=== PATIENT | male | born 1990 | race Caucasian/White ===

== ENCOUNTER 2018-03-24 05:59 | Inpatient (IN) | payer OTHER ==
[~2018-03-24] VITALS: Ht 190.5 cm; Wt 78.6 kg
[2018-03-24] MEDS ORDERED: LACTATED RINGERS 1,000 ML IV SCH (06:33)
[2018-03-24] MEDS ORDERED: SOMA PO (06:36)
[2018-03-24] MEDS ORDERED: TRAM50TA2 PO (06:36)
[2018-03-24] MEDS ORDERED: IBUPROFEN PO (06:36)
[2018-03-24] MEDS ORDERED: BUPIVACAINE 0.25% ONE (06:53)
[2018-03-24 06:54] VITALS: BP 134/76
[2018-03-24] MEDS ORDERED: BUPIVACAINE/PF-EPI 0.25% 1:200K ONE (06:54)
[2018-03-24] MEDS ORDERED: THROMBIN 5,000 UNIT VIAL TP ONE (06:54)
[2018-03-24] MEDS ORDERED: BACITRACIN 50,000 UNIT ONE (06:54)
[2018-03-24] MEDS ORDERED: LIDOCAINE-MPF 1%, 2ML INFIL ONE (07:00)
[2018-03-24 07:02] LABS: BASOPHILS # (AUTO) 0.03 x10^3/uL (0-0.1); BASOPHILS % (AUTO) 0 % (0-1); EOSINOPHILS # (AUTO) 0.26 x10^3/uL (0-0.4); EOSINOPHILS % (AUTO) 3 % (1-7); LYMPHOCYTES # (AUTO) 1.81 x10^3/uL (1-3.4); LYMPHOCYTES % (AUTO) 24 % (22-44); MD NO; MEAN CORPUSCULAR HEMOGLOBIN 31.9 pg (27.5-34.5); MEAN CORPUSCULAR HGB CONC 34.3 g/dL (33.2-36.2); MEAN PLATELET VOLUME 9.3 fL (7.4-10.4); MONOCYTES # (AUTO) 0.57 x10^3/uL (0.2-0.8); MONOCYTES % (AUTO) 8 % (2-9); NEUTROPHILS # (AUTO) 4.93 x10^3/uL (1.8-6.8); NEUTROPHILS % (AUTO) 65 % (42-75); PLATELET COUNT 237 x10^3/uL (130-400); RED BLOOD COUNT 4.86 x10^6/uL (4.38-5.82)
[2018-03-24] MEDS ORDERED: MIDAZOLAM 1 MG/ML, 2ML ONE (07:02)
[2018-03-24] MEDS ORDERED: FENTANYL PF 250 MCG/5ML ONE ×2 (07:02→08:54)
[2018-03-24 07:07] LABS: INTERNATIONAL NORMALIZED RATIO 1.05 (0.93-1.1); PROTHROMBIN TIME 10.9 Seconds (9.6-11.5)
[2018-03-24 07:08] LABS: ANION GAP 9 mmol/L (5-15); CALCIUM 8.8 mg/dL (8.5-10.1); CHLORIDE 110 mmol/L (98-107); CREATININE 1.04 mg/dL (0.7-1.3)
[2018-03-24 07:15] LABS: MICROSCOPIC INDICATED
[2018-03-24 07:23] LABS: CULTURE INDICATED? NO
[2018-03-24] MEDS ORDERED: SUCCINYLCHOLINE 20 MG/ML, 10ML ONE (07:28)
[2018-03-24] MEDS ORDERED: CEFAZOLIN 1,000 MG ONE (07:28)
[2018-03-24] MEDS ORDERED: ROCURONIUM 10 MG/ML,10ML ONE (07:28)
[2018-03-24] MEDS ORDERED: DEXAMETHASONE 4 MG/ML, 1ML ONE (07:28)
[2018-03-24] MEDS ORDERED: PROPOFOL 10 MG/ML, 20ML ONE (07:28)
[2018-03-24] MEDS ORDERED: ONDANSETRON 2MG/ML, 2ML ONE (07:28)
[2018-03-24] MEDS ORDERED: GABAPENTIN 300 MG CAPSULE PO ONE (07:30)
[2018-03-24] MEDS ORDERED: ACETAMINOPHEN 500 MG TABLET PO ONE (07:30)
[2018-03-24] MEDS ORDERED: ONDANSETRON 2MG/ML, 2ML IVPush PRN (08:30)
[2018-03-24] MEDS ORDERED: MEPERIDINE/PF 25MG/0.5ML IVPush PRN (08:30)
[2018-03-24] MEDS ORDERED: METOCLOPRAMIDE 5 MG/ML, 2ML IV PRN (08:30)
[2018-03-24] MEDS ORDERED: OXYcodone 5 MG/5 ML ORAL.SOL UDC PO PRN (08:30)
[2018-03-24] MEDS ORDERED: hydrALAzine 20 MG/ML, 1ML IV PRN (08:30)
[2018-03-24] MEDS ORDERED: KETOROLAC 30 MG/1 ML IV PRN (08:30)
[2018-03-24] MEDS ORDERED: LABETALOL 5MG/ML, 20ML IV PRN ×2 (08:30→11:30)
[2018-03-24] MEDS ORDERED: PROMETHAZINE 25 MG/ML, 1ML IV PRN (08:30)
[2018-03-24] MEDS ORDERED: ALBUTEROL SULFATE 2.5 MG/3 ML NPPB PRN (08:30)
[2018-03-24] MEDS ORDERED: FENTANYL PF 100 MCG/2ML ONE (10:05)
[2018-03-24] MEDS ORDERED: KETOROLAC 30 MG/1 ML ONE (10:05)
[2018-03-24] MEDS ORDERED: OXYcodone 5 MG/5 ML ORAL.SOL UDC ONE (10:06)
[2018-03-24] MEDS: FENTANYL PF 100 MCG/2ML IV PRN ×2 (10:09→10:16)
[2018-03-24] MEDS ORDERED: HYDROmorphone 2 MG/ML, 1ML ONE (10:12)
[2018-03-24] MEDS: HYDROmorphone 1 MG/ML, 1ML IV PRN ×3 (10:16→10:36)
[2018-03-24] MEDS ORDERED: DIPHENHYDRAMINE 50 MG/ML, 1ML IVPush PRN (11:30)
[2018-03-24] MEDS ORDERED: DIPHENHYDRAMINE 50 MG/ML, 1ML IM PRN (11:30)
[2018-03-24] MEDS ORDERED: ONDANSETRON 2MG/ML, 2ML IV PRN (11:30)
[2018-03-24] MEDS ORDERED: morphine SULFATE 10 MG/ML, 1ML IV PRN (11:30)
[2018-03-24] MEDS ORDERED: CARISOPRODOL 350 MG TABLET PO PRN (11:30)
[2018-03-24] MEDS ORDERED: MAGNESIUM HYDROXIDE 8%, 30ML UDC PO PRN (11:30)
[2018-03-24] MEDS ORDERED: DIPHENHYDRAMINE 50 MG CAPSULE PO PRN (11:30)
[2018-03-24] MEDS ORDERED: BISACODYL 10 MG SUPP PR PRN (11:30)
[2018-03-24] MEDS ORDERED: PROMETHAZINE 25 MG/ML, 1ML IM PRN (11:30)
[2018-03-24] MEDS: D5%-0.9% NACL+KCL 20MEQ 1,000 ML IV SCH ×2 (12:00→21:30)
[2018-03-24] MEDS: LABETALOL 5MG/ML, 20ML IV SCH ×2 (12:00→21:07)
[2018-03-24] MEDS: HYDROcodone/APAP 5/325 TABLET PO PRN ×3 (12:05→21:07)
[2018-03-24 15:25] VITALS: BP 99/51
[2018-03-24] MEDS: CEFAZOLIN PMX 1GM/50ML 50 ML IVPB SCH (16:13)
[2018-03-24 20:21] VITALS: BP 118/66
[2018-03-24] MEDS ORDERED: ZOLPIDEM 5MG TABLET PO PRN (21:00)
[2018-03-25 00:16] VITALS: BP 130/61
[2018-03-25] MEDS: CEFAZOLIN PMX 1GM/50ML 50 ML IVPB SCH (00:18)
[2018-03-25] MEDS ORDERED: OXYC-302 PO (00:36)
[2018-03-25] MEDS ORDERED: CARI350T PO (00:39)
[2018-03-25] MEDS: HYDROcodone/APAP 5/325 TABLET PO PRN (01:04)
[2018-03-25 03:35] VITALS: BP 122/59
[2018-03-25] MEDS: LABETALOL 5MG/ML, 20ML IV SCH (04:00)
[2018-03-25] MEDS: OXYcodone/APAP 5/325MG TABLET PO PRN ×2 (06:27→10:15)
[2018-03-25] MEDS: D5%-0.9% NACL+KCL 20MEQ 1,000 ML IV SCH (07:30)
[2018-03-25 07:50] VITALS: BP 126/67
[2018-03-25] MEDS ORDERED: SENNA/DOCUSATE TABLET PO SCH (09:00)
[2018-03-25] MEDS ORDERED: ENOXAPARIN 40 MG/0.4 ML SQ SCH (10:00)
== END 2018-03-25 12:10 | disposition home or self-care (01) | DRG 520 ==
LOC: ORIP 05:59 → 4NOR 11:04 → DCLOUNGE 03-25 11:56
PROVIDERS: ADMIT Neurological Surgery; ATTEND Neurological Surgery
PROC: 01NB0ZZ Release Lumbar Nerve, Open Approach (ICD-10-PCS; 2018-03-24)
PROC: 0SB40ZZ Excision of Lumbosacral Disc, Open Approach (ICD-10-PCS; principal; 2018-03-24 07:30)
DX: M47.26 Other spondylosis with radiculopathy, lumbar region (principal); M48.061 Spinal stenosis, lumbar region without neurogenic claudication
CPT/HCPCS: 36415; 71045; 72100; 80048; 81001; 82962; 85025; 85610; 85730; 86850; 86900; 93005; C1729; G0378; J0690; J1100; J1170; J1885; J2250; J2405; J2704; J3010; J3490; J0330; J3480; J7120